=== PATIENT | female | born 1990 | race Caucasian/White ===

== ENCOUNTER 2019-11-02 17:52 | Emergency (ER) | payer OTHER ==
[~2019-11-02] VITALS: Ht 152.4 cm; Wt 72.7 kg
[2019-11-02 19:30] VITALS: BP 135/68
[2019-11-02] MEDS ORDERED: PERCOCET 5MG/325MG TAB PO ONE (19:30)
[2019-11-02] MEDS ORDERED: PERC5TAB12 PO (19:55)
--- NOTE | 2019-11-03 08:56 | REP ---
Right knee five views : There is no fracture or dislocation. Mineralization and joint spaces are normal. There are no calcifications or foreign bodies. Impression: Negative right knee. Electronically Signed by Isai Montejo MD 11/03/2019 08:46 A
== END 2019-11-02 20:45 | disposition home or self-care (01) ==
LOC: M ED 17:52
DX: M23.91 Unspecified internal derangement of right knee (principal); V00.321A Fall from snow-skis, initial encounter; Y92.838 Other recreation area as the place of occurrence of the external cause; Y93.23 Activity, snow (alpine) (downhill) skiing, snowboarding, sledding, tobogganing and snow tubing

== ENCOUNTER → 2020-01-17 | Outpatient (CLI) | payer OTHER ==
[~2020-01-17] MED LIST: PERC5TAB12 PO
== END ==
LOC: M LABSMTC 09:00
PROVIDERS: ATTEND Anesthesiology
DX: Z01.818 Encounter for other preprocedural examination (principal); Z11.59 Encounter for screening for other viral diseases

== ENCOUNTER 2020-01-20 11:39 | Day surgery (SDC) | payer OTHER ==
[~2020-01-20] VITALS: Ht 152.4 cm; Wt 69.9 kg
[~2020-01-20 11:39] MED LIST changes: +LIDOCAINE 1% MDV 20ML VIAL SQ PRN; +LIDOCAINE 2% 100MG/5ML SDV (FOR ANES.) As Ordered ONE; +LR 1,000 ML IV ONE; +MIDAZOLAM INJ 2MG/2ML VIAL (J2250 PER 1MG) As Ordered ONE; +ROCURONIUM BROMIDE 50 MG/5 ML VIAL As Ordered ONE; +fentaNYL 100 MCG/2 ML INJECTION (J3010) As Ordered ONE; +propofoL 200 MG/20 ML VIAL As Ordered ONE
[2020-01-20] MEDS ORDERED: ceFAZolin 1GM VIAL (J0690 PER 500MG) As Ordered ONE (12:08)
[2020-01-20] MEDS ORDERED: ROPIvacaine 0.5% 30ML INJECTION (J2795 PER 1MG) As Ordered ONE (12:08)
[2020-01-20] MEDS ORDERED: ceFAZolin 2 GM/D5W 50 ML IV BAG (J0690 PER 500MG) As Ordered ONE (12:19)
[2020-01-20] MEDS ORDERED: ceFAZolin SOD 2 GM in IV 1 EA IV ONE (12:30)
[2020-01-20] MEDS ORDERED: KETOROLAC 60 MG/2 ML VIAL As Ordered ONE (12:58)
[2020-01-20] MEDS ORDERED: ONDANSETRON 4MG/2ML VIAL As Ordered ONE (12:58)
[2020-01-20] MEDS ORDERED: dexameTHASONE 4 MG/ML 1ML VIAL (J1100 PER 1MG) As Ordered ONE (12:58)
[2020-01-20] MEDS ORDERED: METOCLOPRAMIDE INJ 10MG/2ML VIAL (J2765 PER 1) As Ordered ONE ×2 (12:58→15:13)
[2020-01-20] MEDS ORDERED: HYDROmorphone HCL 2 MG/ML 1ML VIAL (J1170) As Ordered ONE (12:59)
[2020-01-20] MEDS ORDERED: ACETAMINOPHEN 1000MG 100ML IV BTL (OFIRMEV) (J0131 PER 10MG) As Ordered ONE (12:59)
[2020-01-20] MEDS ORDERED: fentaNYL 100 MCG/2 ML INJECTION (J3010) IV PRN (15:00)
[2020-01-20] MEDS ORDERED: MORPHINE 4 MG/ML 1ML VIAL/SYRINGE (J2270) IV PRN (15:00)
[2020-01-20] MEDS ORDERED: PERCOCET 5MG/325MG TAB PO PRN ×2 (15:00→15:15)
[2020-01-20] MEDS ORDERED: ACETAMINOPHEN TAB 650MG DOSE (2X325MG) PO PRN (15:00)
[2020-01-20] MEDS ORDERED: LR 1,000 ML IV SCH ×2 (15:00)
[2020-01-20] MEDS ORDERED: ONDANSETRON 4MG/2ML VIAL IV PRN ×3 (15:00→15:45)
[2020-01-20] MEDS ORDERED: METOCLOPRAMIDE INJ 10MG/2ML VIAL (J2765 PER 1) IV PRN (15:15)
[2020-01-20] MEDS ORDERED: PROMETHAZINE INJ 25 MG/ML VIAL (J2550) As Ordered ONE (15:35)
[2020-01-20] MEDS: PROMETHAZINE INJ 25 MG/ML VIAL (J2550) IV PRN ×2 (15:40→15:46)
--- NOTE | 2020-01-20 15:49 | RO ---
DATE OF PROCEDURE: 01/20/2020 SURGEON: Alessandro Macario MD [employer]O TECHNICIAN: Dr. Trammell TYPE OF ANESTHETIC: General anesthetic. RISK INTERN: OLYA Luna PREOPERATIVE DIAGNOSIS: Right knee anterior cruciate ligament (ACL) tear and the medial collateral ligament (MCL) sprain. POSTOPERATIVE DIAGNOSIS: Right knee anterior cruciate ligament tear and the medial collateral ligament sprain. PLANNED PROCEDURE: Right knee anterior cruciate ligament reconstruction, hamstring allograft. PROCEDURE PERFORMED: Right knee anterior cruciate ligament reconstruction, hamstring allograft. OPERATIVE PREAMBLE: This 29-year-old female sustained an ACL tear and MCL sprain. She continued to have knee instability. We talked about the pros and cons, risks and benefits of surgery. I reiterated the risks in preoperative holding. Preoperatively, her MCL felt the same as the contralateral side and no laxity in extension, so it was elected to simply go ahead with the ACL reconstruction. OPERATIVE REPORT: The patient was brought to the operating theater. They placed supine on the operating table. Stress positioner was used to the patient's right side. Tourniquet was applied to the right thigh, appropriately padded. All bony prominences were padded. 2 grams of IV Ancef was administered. General anesthesia was induced. The leg was prepped and draped in the usual sterile fashion allowing over 3 minutes prep solution drying time. Preoperative time- out was performed to confirm the site, the patient and surgery. I began by performing an EUA on the limb. ACL had 2+ Jonel, 2+ pivot shift. There was only mild MCL opening and symmetric to the other side 30 degrees only. I began by elevating the leg, inflating the tourniquet to 250 mmHg. I performed anterolateral as well as anteromedial portals. Examined the full intra-articular extend of the knee. Cartilage and all three compartments. No meniscus tears in the medial and lateral compartment. Medial and lateral gutters were entered. No loose bodies. ACL is obviously stretched and deficient with an empty lateral wall sign. ACL remnant was fully debrided keeping some fibers at the tibial stump. Back wall was identified as well as capsular reflection. The scope was withdrawn. I flexed the knee up to 90 degrees. I also made a 3 inch incision centered over the proximal anteromedial border the tibia three fingerbreadths below the level of the tibial plateau. I made this incision slightly oblique. I carried dissection down to skin and subcutaneous tissue to meticulous hemostasis. Identified the two hamstrings tendons as well as sartorial fascia. I made a small incision in line with the tendon insertions at the superior aspect of the tendon insertion. I harvested each tendon releasing bands and using an open-ended tendon harvester. I removed the muscle from proximal end of the tendons and then sharply excised them from the proximal anteromedial border of the tibia taking care to not damage the MCL. I then took the tendons to the back table. I the two tendons and flipped them 180 degrees. I cut them at 22 cm. I whipstitch each end in together for a length of 2.5 cm using #2 FiberWire suture. I then attached one end to the TightRope RT button together in through the loop of the ABS button loop suture and then tripled the graft over inducted and docked the free end in-between the other two ends. I then took the free end of the sutures through and around the ABS button loop suture system and tied this using alternating 1/2 hitches. The graft was sequentially tightened and at 1 and 2 cm from each end of the graft I performed circumferential loop type stitch to secure the graft internally. One end was cut short, the other taken through the tendon to bury the knot inside the tendon and cut short. The graft was sized to 9.5 mm on both sides. Graft was placed on tension and wrapped with saline soaked gauze. I then turned my attention back to the knee. Using inside-out technique with the Arthrex FlipCutters, I then chose my femoral tunnel site. Took arthroscopy pictures throughout and saved them onto the system. Assured to stay low and towards the back wall without blowing out the back wall. The tunnel length on the femur was 4 cm, so I chose a 2.5 mm tunnel length. On the tibia it was 5 cm, so I chose a 4 cm long tunnel. The scope was driven up into the femoral tunnel to confirm proper lateral cortex. A shaver was used to clean up the tunnel edges. I widened the anteromedial portal. I brought out #2 FiberStick sutures through each tunnel of the anteromedial portal ensuring to not have soft tissue bridge. I then passed the graft femoral side up into the femoral tunnel. I used the passing stitch followed by the tightening stitch to hold 2.5 cm into femoral side of the tunnel. I then attached a luggage type stitch to the ABS loop stitch. I passed this all through the tibial side. Standard size Arthrex button was then attached to the ABS loop stitches as well as the backup stitches, passer button as well. The graft was secured 30 degrees. It had full extension. It was solid and tight with Jonel testing. Final pictures were taken. Backup sutures as well as the ABS loop sutures were both tied over the button and cut short. The incisions were thoroughly irrigated. Subcutaneous tissue was closed with interrupted #2-0 Vicryl sutures and skin with #3-0 Monocryl. 20 mL of 0.25% bupivacaine was instilled in and around incision sites as well as at the tendon, as well as at the hamstring tendon harvest site. The wound was cleaned with dry dressing followed by application of Steri-Strips, Adaptic, 4 x 8 gauze, ABD dressing overwrapped with 6 inch Orion bandage. The patient's left leg was placed into the brace unlocked. Tourniquet was taken down prior to the end of the case. Total tourniquet time approximately 91 minutes. The patient was awaken from general anesthetic, transferred off the operating table and taken to postanesthetic care unit in stable condition. All sponge, needle, and instruments counts were correct. No complications. Estimated blood loss 50 mL. Budget Technician was instrumental in achieving visualization, securing and preparing the graft, and completing the case. PLAN: The patient will be weightbearing as tolerated with crutches likely for the first 2 week, elevate the leg trying to get the swelling down. Prescription will be sent pharmacy of choice. They may change dressing on their own in 2 days or wait until they see me in clinic in 2 weeks' time. They had no further questions and I talked to their relative after surgery. Given that the patient is young and healthy and is a nonsmoker, I will not use venous thromboembolism (VTE) prophylaxis. RIRI
[2020-01-20 17:55] VITALS: BP 146/87
== END 2020-01-20 17:55 | disposition home or self-care (01) ==
LOC: M SDC 11:39
PROVIDERS: ATTEND Orthopaedic Surgery Sports Medicine
DX: S83.511A Sprain of anterior cruciate ligament of right knee, initial encounter (principal); S83.411A Sprain of medial collateral ligament of right knee, initial encounter; X58.XXXA Exposure to other specified factors, initial encounter; Y92.89 Other specified places as the place of occurrence of the external cause; Y93.9 Activity, unspecified; Y99.9 Unspecified external cause status; Z87.891 Personal history of nicotine dependence; F12.10 Cannabis abuse, uncomplicated
CPT/HCPCS: 29888; 81025; C1713; J0131; J0690; J1100; J1170; J1885; J2250; J2405; J2765; J2795; J3010

== ENCOUNTER → 2022-12-05 | Outpatient (CLI) | payer OTHER ==
[~2022-12-05] MED LIST changes: -LIDOCAINE 1% MDV 20ML VIAL SQ PRN; -LIDOCAINE 2% 100MG/5ML SDV (FOR ANES.) As Ordered ONE; -LR 1,000 ML IV ONE; -MIDAZOLAM INJ 2MG/2ML VIAL (J2250 PER 1MG) As Ordered ONE; -ROCURONIUM BROMIDE 50 MG/5 ML VIAL As Ordered ONE; -fentaNYL 100 MCG/2 ML INJECTION (J3010) As Ordered ONE; -propofoL 200 MG/20 ML VIAL As Ordered ONE
== END ==
LOC: M PLALAB 11:17
PROVIDERS: ATTEND Psychiatry & Neurology Psychiatry
DX: Z79.899 Other long term (current) drug therapy (principal)

== ENCOUNTER 2023-02-15 10:39 | Emergency (ER) | payer OTHER ==
[~2023-02-15] VITALS: Ht 152.4 cm; Wt 61.9 kg
[2023-02-15] MEDS ORDERED: HYDR-3363 PO (11:06)
[2023-02-15] MEDS ORDERED: PROZ10CA7 (11:06)
[2023-02-15] MEDS ORDERED: KETOROLAC 30 MG/ML 1ML VIAL IV ONE (14:05)
[2023-02-15] MEDS ORDERED: ONDANSETRON 4MG 2ML VIAL IV ONE (14:05)
[2023-02-15] MEDS ORDERED: ALPRAZolam 0.5 MG TAB PO ONE (14:05)
[2023-02-15 14:33] LABS: BASO # 0.1 10^3/uL (0.0-0.2); BASO % 0.7 % (0.0-1.0); EOS % 0.1 % (0.0-3.0); HEMATOCRIT 44.6 % (36.0-47.0); HEMOGLOBIN 14.4 g/dl (12.0-15.5); LYMPH # 1.6 10^3/uL (1.5-5.0); LYMPH % 18.4 % (24.0-44.0); MEAN CORPUSCULAR HEMOGLOBIN 27.7 pg (27.0-33.0); MEAN CORPUSCULAR HGB CONC 32.3 g/dl (32.0-36.5); MEAN CORPUSCULAR VOLUME 85.8 fl (80.0-96.0); MONO # 0.7 10^3/uL (0.0-0.8); MONO % 7.7 % (2.0-8.0); NEUTROPHILS # 6.5 10^3/uL (1.5-8.5); NEUTROPHILS % 72.8 % (36.0-66.0); PLATELET COUNT, AUTOMATED 273 10^3/uL (150-450); WHITE BLOOD COUNT 8.9 10^3/uL (4.0-10.0)
[2023-02-15] MEDS ORDERED: XANA1TAB2 PO (15:21)
[2023-02-15 15:29] VITALS: BP 134/74; TEMP 98; O2SAT 99
== END 2023-02-15 15:31 | disposition home or self-care (01) ==
LOC: M ED 10:39
DX: R51.9 Headache, unspecified (principal); F41.9 Anxiety disorder, unspecified; T88.7XXA Unspecified adverse effect of drug or medicament, initial encounter; Z79.899 Other long term (current) drug therapy
CPT/HCPCS: 80047; 82550; 85025; 93005; 96374; 96375; 99284; J1885; J2405

== ENCOUNTER → 2023-02-21 | Outpatient (CLI) | payer OTHER ==
[~2023-02-21] MED LIST changes: +HYDR-3363 PO; +LORA1TAB23 PO; +PROZ10CA7; +XANA1TAB2 PO
== END ==
LOC: M OUTALCOH 08:09
PROVIDERS: ATTEND Psychiatry & Neurology Psychiatry
DX: Z03.89 Encounter for observation for other suspected diseases and conditions ruled out (principal)

== ENCOUNTER 2023-02-23 11:28 | Inpatient (IN) | payer OTHER ==
[~2023-02-23] VITALS: Ht 152.4 cm; Wt 60.5 kg
[~2023-02-23 11:28] MED LIST changes: -LORA1TAB23 PO
[2023-02-23 12:34] LABS: HEMATOCRIT 42.7 % (36.0-47.0); HEMOGLOBIN 13.9 g/dl (12.0-15.5); MEAN CORPUSCULAR HEMOGLOBIN 27.7 pg (27.0-33.0); MEAN CORPUSCULAR HGB CONC 32.6 g/dl (32.0-36.5); MEAN CORPUSCULAR VOLUME 85.1 fl (80.0-96.0); PLATELET COUNT, AUTOMATED 279 10^3/uL (150-450); RED BLOOD COUNT 5.02 10^6/uL (4.00-5.40); WHITE BLOOD COUNT 10.8 10^3/uL (4.0-10.0)
[2023-02-23 12:56] LABS: ETHYL ALCOHOL (ETHANOL) 0.008 % (0.000-0.010)
[2023-02-23 12:57] LABS: ACETAMINOPHEN LEVEL < 2.0 UG/ML (10.0-20.0); ALBUMIN 4.1 G/DL (3.2-5.2); ALKALINE PHOSPHATASE 62 U/L (46-116); ALT/SGPT 20 U/L (7.0-40); AST/SGOT 14 U/L (<34); BILIRUBIN,DIRECT 0.3 MG/DL (<0.4); BILIRUBIN,TOTAL 0.9 MG/DL (0.3-1.2); BLOOD UREA NITROGEN 7 MG/DL (9-23); CALCIUM LEVEL 8.9 MG/DL (8.5-10.1); CARBON DIOXIDE LEVEL 28 MMOL/L (20-31); CHLORIDE LEVEL 106 MMOL/L (98-107); CREATININE FOR GFR 0.83 MG/DL (0.55-1.30); GLOMERULAR FILTRATION RATE > 60.0 (>60); GLUCOSE, FASTING 100 MG/DL (60-100); SALICYLATE LEVEL < 3.0 MG/DL (<30); SODIUM LEVEL 140 MMOL/L (136-145); TOTAL PROTEIN 6.9 G/DL (5.7-8.2)
[2023-02-23 13:01] LABS: THYROID STIMULATING HORMONE 0.452 uIU/ML (0.55-4.78)
[2023-02-23 13:19] LABS: AMPHETAMINES LEVEL URINE NEGATIVE (NEGATIVE); BARBITURATES URINE NEGATIVE (NEGATIVE); COCAINE METABOLITE URINE NEGATIVE (NEGATIVE); METHADONE URINE NEGATIVE (NEGATIVE); OPIATES URINE NEGATIVE (NEGATIVE); PHENCYCLIDINE URINE NEGATIVE (NEGATIVE)
[2023-02-23 13:20] LABS: BENZODIAZEPINES URINE POSITIVE (NEGATIVE); CANNABINOIDS URINE POSITIVE (NEGATIVE)
[2023-02-23] MEDS ORDERED: ALPRAZolam 0.5 MG TAB PO ONE (19:10)
[2023-02-23] MEDS ORDERED: HOME MED LIST COMPLETE! XX SCH (19:35)
[2023-02-23] MEDS ORDERED: diphenhydrAMINE 25MG CAP PO PRN (20:40)
[2023-02-23] MEDS ORDERED: traZODone 50 MG TAB PO PRN (20:40)
[2023-02-23] MEDS ORDERED: ACETAMINOPHEN TAB 650MG DOSE (2X325MG) PO PRN (20:40)
[2023-02-23] MEDS ORDERED: OLANZapine 5 MG TAB PO PRN (20:40)
[2023-02-23] MEDS ORDERED: IBUPROFEN 400MG TAB PO PRN (20:40)
[2023-02-23] MEDS ORDERED: MAALOX 30 ML SUSP *UDC PO PRN (20:40)
[2023-02-23] MEDS ORDERED: MOM 30ML SUSPENSION UDC PO PRN (20:40)
[2023-02-23 22:37] VITALS: BP 137/92; TEMP 98.2; O2SAT 99
[2023-02-24 06:26] VITALS: BP 104/61; TEMP 97.8; O2SAT 99
[2023-02-24] MEDS ORDERED: NICOTINE 21MG/24HR 1 EA TRANSDERMAL TD SCH (09:00)
[2023-02-24 13:11] LABS: FREE T4 1.23 NG/DL (0.89-1.76); THYROID STIMULATING HORMONE 0.576 uIU/ML (0.55-4.78)
[2023-02-24] MEDS ORDERED: LORA1TAB23 PO (17:40)
== END 2023-02-24 18:05 | disposition home or self-care (01) | DRG 756 ==
LOC: M ED 11:28 → M ED INP 20:36 → M PSY 21:14
PROVIDERS: ADMIT Student in an Organized Health Care Education/Training Program; ATTEND Student in an Organized Health Care Education/Training Program
DX: F41.8 Other specified anxiety disorders (principal); F32.89 Other specified depressive episodes; F16.10 Hallucinogen abuse, uncomplicated; R94.6 Abnormal results of thyroid function studies; Z91.018 Allergy to other foods

== ENCOUNTER 2023-03-08 10:30 | Outpatient (RCR) | payer OTHER ==
[~2023-03-08 10:30] MED LIST changes: +LORA1TAB23 PO
== END 2023-03-09 ==
LOC: M OUTALCOH 10:30
PROVIDERS: ATTEND Psychiatry & Neurology Psychiatry
DX: F12.20 Cannabis dependence, uncomplicated (principal); F16.10 Hallucinogen abuse, uncomplicated; F17.200 Nicotine dependence, unspecified, uncomplicated

== ENCOUNTER 2024-07-22 09:24 | Inpatient (IN) | payer OTHER ==
[~2024-07-22] VITALS: Ht 153.7 cm; Wt 63.6 kg
[2024-07-22 09:53] LABS: HEMATOCRIT 44.3 % (36.0-47.0); HEMOGLOBIN 15.2 g/dl (12.0-15.5); MEAN CORPUSCULAR HEMOGLOBIN 28.9 pg (27.0-33.0); MEAN CORPUSCULAR HGB CONC 34.3 g/dl (32.0-36.5); MEAN CORPUSCULAR VOLUME 84.2 fl (80.0-96.0); PLATELET COUNT, AUTOMATED 236 10^3/uL (150-450); RED BLOOD COUNT 5.26 10^6/uL (4.00-5.40); WHITE BLOOD COUNT 12.9 10^3/uL (4.0-10.0)
[2024-07-22 10:17] LABS: ETHYL ALCOHOL (ETHANOL) < 0.003 % (0.000-0.010)
[2024-07-22 10:19] LABS: ALBUMIN 4.4 G/DL (3.2-5.2); ALKALINE PHOSPHATASE 66 U/L (35-104); ALT/SGPT 17 U/L (7.0-40); AST/SGOT 17 U/L (<34); BILIRUBIN,DIRECT 0.3 MG/DL (<0.4); BLOOD UREA NITROGEN 9 MG/DL (9-23); CALCIUM LEVEL 9.7 MG/DL (8.5-10.1); CARBON DIOXIDE LEVEL 20 MMOL/L (20-31); CHLORIDE LEVEL 107 MMOL/L (98-107); CREATININE FOR GFR 0.66 MG/DL (0.55-1.30); GLOMERULAR FILTRATION RATE > 60.0 (>60); GLUCOSE, FASTING 117 MG/DL (60-100); POTASSIUM SERUM 3.6 MMOL/L (3.5-5.1); SALICYLATE LEVEL < 3.0 MG/DL (<30); SODIUM LEVEL 140 MMOL/L (136-145); TOTAL PROTEIN 8.5 G/DL (5.7-8.2)
[2024-07-22 10:20] LABS: HCG, SERUM QUALITATIVE NEGATIVE (NEGATIVE)
[2024-07-22 10:24] LABS: THYROID STIMULATING HORMONE 0.873 uIU/ML (0.55-4.78)
[2024-07-22] MEDS: OLANZapine ORAL DISINTEGRATING TAB 5MG PO ONE (10:43)
[2024-07-22] MEDS ORDERED: BUPR150T12 PO (11:54)
[2024-07-22 11:55] LABS: BARBITURATES URINE NEGATIVE (NEGATIVE); COCAINE METABOLITE URINE NEGATIVE (NEGATIVE); METHADONE URINE NEGATIVE (NEGATIVE); OPIATES URINE NEGATIVE (NEGATIVE); PHENCYCLIDINE URINE NEGATIVE (NEGATIVE)
[2024-07-22] MEDS ORDERED: HOME MED LIST COMPLETE! XX SCH (11:55)
[2024-07-22] MEDS ORDERED: ADDE20CA3 PO (11:55)
[2024-07-22 11:56] LABS: BENZODIAZEPINES URINE NEGATIVE (NEGATIVE)
[2024-07-22 11:58] LABS: AMPHETAMINES LEVEL URINE POSITIVE (NEGATIVE); CANNABINOIDS URINE POSITIVE (NEGATIVE)
[2024-07-22] MEDS ORDERED: MAALOX 30 ML SUSP *UDC PO PRN (15:15)
[2024-07-22] MEDS ORDERED: ACETAMINOPHEN 325 MG TAB PO PRN (15:15)
[2024-07-22] MEDS ORDERED: MOM 30ML SUSPENSION UDC PO PRN (15:15)
[2024-07-22] MEDS ORDERED: IBUPROFEN 400MG TAB PO PRN (15:15)
[2024-07-22] MEDS ORDERED: diphenhydrAMINE 25MG CAP PO PRN (15:15)
[2024-07-22 16:12] VITALS: BP 131/97; TEMP 96.4; O2SAT 98
[2024-07-22] MEDS: diphenhydrAMINE 50MG/ML VIAL IM STA ×3 (21:06→23:37)
[2024-07-22] MEDS: HALOPERIDOL LACTATE 5MG/ML VIAL IM STA ×3 (21:07→23:37)
[2024-07-22] MEDS: LORazepam 2 MG/ML 1ML VIAL IM STA ×3 (21:07→23:37)
[2024-07-23] MEDS ORDERED: LORazepam 2 MG TAB PO PRN (10:15)
[2024-07-23] MEDS: DIVALPROEX 250MG TAB PO SCH (14:02)
[2024-07-23] MEDS: OLANZapine 5 MG TAB PO SCH (14:02)
[2024-07-23 14:43] VITALS: BP 118/65; TEMP 98; O2SAT 97
[2024-07-24 06:28] VITALS: BP 146/70; TEMP 98.1; O2SAT 99
[2024-07-24 15:11] VITALS: BP 130/76; TEMP 98.8; O2SAT 98
[2024-07-24] MEDS: OLANZapine ORAL DISINTEGRATING TAB 5MG PO PRN (15:36)
[2024-07-25 06:15] VITALS: BP 128/67; TEMP 96.9; O2SAT 99
[2024-07-25 14:59] VITALS: BP 136/65; TEMP 98.4; O2SAT 99
[2024-07-25] MEDS: traZODone 50 MG TAB PO PRN (20:40)
[2024-07-26 06:50] VITALS: BP 145/72; TEMP 97.3; O2SAT 99
[2024-07-26 14:52] VITALS: BP 129/60; TEMP 98.2; O2SAT 98
[2024-07-26] MEDS: diphenhydrAMINE 50MG CAP PO PRN (21:09)
[2024-07-27 06:36] VITALS: BP 125/71; TEMP 97.1; O2SAT 98
[2024-07-27 15:12] VITALS: BP 140/82; TEMP 98.9; O2SAT 100
[2024-07-27] MEDS: OLANZapine 10 MG TAB PO SCH (20:05)
[2024-07-28 06:41] VITALS: BP 134/78; TEMP 97.3; O2SAT 98
[2024-07-28] MEDS ORDERED: DEPA250T32 PO (08:14)
[2024-07-28] MEDS ORDERED: OLAN1TAB20 PO (08:14)
[2024-07-28] MEDS ORDERED: TRAZ-252 PO (08:14)
== END 2024-07-28 12:15 | disposition home or self-care (01) | DRG 751 ==
LOC: M ED 09:24 → M ED INP 15:12 → M PSY 16:22
PROVIDERS: ADMIT Psychiatry & Neurology Child & Adolescent Psychiatry; ATTEND Psychiatry & Neurology Psychiatry
DX: F29 Unspecified psychosis not due to a substance or known physiological condition (principal); Z78.1 Physical restraint status; F16.10 Hallucinogen abuse, uncomplicated; F31.9 Bipolar disorder, unspecified; F12.10 Cannabis abuse, uncomplicated; Z79.899 Other long term (current) drug therapy